=== PATIENT | female | born 1940 | race Hispanic/Latino ===

== ENCOUNTER 2019-11-12 03:39 | Inpatient (IN) | payer OTHER ==
[~2019-11-12] VITALS: Ht 157.5 cm; Wt 81.6 kg
[2019-11-12 05:18] LABS: POTASSIUM 4.5 mmol/L (3.5-5.1)
[2019-11-12 05:19] LABS: ALBUMIN 3.6 g/dL (3.5-5.0); BILIRUBIN,TOTAL 1.7 mg/dL (0.2-1.0); CREATININE 0.7 mg/dL (0.5-1.5); TOTAL PROTEIN, SERUM 7.1 g/dL (6.0-8.3)
[2019-11-12 05:21] LABS: BASOPHILS % (AUTO) 0.2 % (0.0-5.0); HEMATOCRIT 37.5 % (36-48); MEAN CORPUSCULAR HEMOGLOBIN 32.1 pg (27.0-33.0); MEAN CORPUSCULAR HGB CONC 33.6 g/dL (32.0-36.0); MEAN CORPUSCULAR VOLUME 95.4 fL (79-99); MONOCYTES % (AUTO) 0.5 % (3.0-13.0); NEUTROPHILS % (AUTO) 88.8 % (40.0-77.0); PLATELET COUNT (AUTO) 162 K/uL (130-400); RED BLOOD CELL COUNT(AUTO) 3.93 MIL/uL (4.00-5.50); WHITE BLOOD COUNT (AUTO) 4.1 K/uL (4.8-10.8)
[2019-11-12 05:23] LABS: B-TYPE NATRIURETIC PEPTIDE 22 pg/mL (0-100); INR 0.96 (0.85-1.15); PARTIAL THROMBOPLASTIN TIME 21.5 SEC (26.3-35.5); PROTHROMBIN TIME 10.4 SEC (9.6-11.6)
[2019-11-12] MEDS ORDERED: ONDANSETRON HCL 4 MG/2 ML VIAL IV PRN ×2 (05:45→06:15)
[2019-11-12] MEDS ORDERED: NITROGLYCERIN 0.4 MG SL TAB SL PRN ×2 (05:45→06:15)
[2019-11-12] MEDS ORDERED: ACETAMINOPHEN 325 MG TAB PO PRN ×3 (05:45→06:15)
[2019-11-12] MEDS ORDERED: DiphenhydrAMINE HCL 50 MG/ML VIAL IV PRN (06:15)
[2019-11-12] MEDS ORDERED: MAG HYDROX/AL HYDROX/SIMETH ES 30 ML SUSP UDCUP PO PRN (06:15)
[2019-11-12] MEDS ORDERED: DIPHENHYDRAMINE HCL 25 MG CAPSULE PO PRN (06:15)
[2019-11-12] MEDS ORDERED: ZOLPIDEM TARTRATE 5 MG TAB PO PRN (06:15)
[2019-11-12] MEDS ORDERED: GUAIFENESIN-DM 200/20 MG 10 ML PO PRN (06:15)
[2019-11-12] MEDS ORDERED: LACTULOSE 20 GM/30 ML UDCUP PO PRN (06:15)
[2019-11-12] MEDS ORDERED: SODIUM CHLORIDE 0.9% 1000ML 1,000 ML IV SCH (07:00)
[2019-11-12] MEDS ORDERED: IOHEXOL-350 75 ML VIAL IV ONE (07:54)
--- NOTE | 2019-11-12 08:01 | NUR ---
patient still in ER department, awaiting for patient to be transferred to medical floor in order to be able to initiate skilled Physical Therapy evaluation as ordered by Rip Jewell MD Addendum: 11/12/19 at 0803 by HUMPHREY LANDERS, PT PT Amended: Links added.
[2019-11-12 08:14] LABS: THYROID STIMULATING HORMONE 5.91 uIU/mL (0.36-3.74)
[2019-11-12] MEDS: ASPIRIN 325 MG TABLET PO SCH (09:00)
[2019-11-12] MEDS: ENOXAPARIN SODIUM 40 MG/0.4 ML SYRINGE SQ SCH (09:00)
[2019-11-12 17:25] VITALS: BP 133/50
[2019-11-12 20:28] VITALS: BP 130/46
[2019-11-12] MEDS: ATORVASTATIN CALCIUM 40 MG TABLET PO SCH (21:00)
[2019-11-12 23:43] VITALS: BP 124/49
[2019-11-13 03:59] VITALS: BP 120/54
[2019-11-13 07:10] LABS: BASOPHILS % (AUTO) 0.3 % (0.0-5.0); EOSINOPHILS % (AUTO) 0.1 % (0.0-8.0); HEMATOCRIT 33.5 % (36-48); LYMPHOCYTES % (AUTO) 6.4 % (21.0-51.0); MEAN CORPUSCULAR HEMOGLOBIN 32.5 pg (27.0-33.0); MEAN CORPUSCULAR HGB CONC 34.6 g/dL (32.0-36.0); MEAN CORPUSCULAR VOLUME 93.8 fL (79-99); MONOCYTES % (AUTO) 4.4 % (3.0-13.0); NEUTROPHILS % (AUTO) 88.2 % (40.0-77.0); PLATELET COUNT (AUTO) 136 K/uL (130-400); RED BLOOD CELL COUNT(AUTO) 3.57 MIL/uL (4.00-5.50); RED CELL DISTRIBUTION WIDTH 13.1 % (11.0-15.5); WHITE BLOOD COUNT (AUTO) 13.5 K/uL (4.8-10.8)
[2019-11-13 07:31] LABS: ALBUMIN 3.2 g/dL (3.5-5.0); BILIRUBIN,DIRECT 4.3 mg/dL (0.0-0.3); BILIRUBIN,TOTAL 5.1 mg/dL (0.2-1.0); CREATININE 0.8 mg/dL (0.5-1.5); POTASSIUM 3.3 mmol/L (3.5-5.1); TOTAL PROTEIN, SERUM 6.5 g/dL (6.0-8.3)
[2019-11-13 08:14] LABS: HEPATITIS A ANTIBODY IGM Negative (Negative); HEPATITIS B CORE IGM Negative (Negative); HEPATITIS Bs ANTIGEN SCREEN P Negative (Negative)
[2019-11-13 08:48] VITALS: BP 124/47
[2019-11-13 11:23] VITALS: BP 135/83
[2019-11-13 16:57] VITALS: BP 131/59
[2019-11-13 20:22] VITALS: BP 153/60
[2019-11-13] MEDS: ATORVASTATIN CALCIUM 40 MG TABLET PO SCH (21:19)
[2019-11-13 23:21] VITALS: BP 140/68
[2019-11-14 04:22] VITALS: BP 161/68
[2019-11-14 06:56] LABS: ALBUMIN 2.9 g/dL (3.5-5.0); BILIRUBIN,TOTAL 2.8 mg/dL (0.2-1.0); CREATININE 0.5 mg/dL (0.5-1.5); TOTAL PROTEIN, SERUM 6.2 g/dL (6.0-8.3)
[2019-11-14 07:04] LABS: POTASSIUM 2.9 mmol/L (3.5-5.1)
[2019-11-14 07:30] VITALS: BP 157/61
[2019-11-14] MEDS: ENOXAPARIN SODIUM 40 MG/0.4 ML SYRINGE SQ SCH ×2 (09:00→09:10)
[2019-11-14] MEDS: ASPIRIN 325 MG TABLET PO SCH ×2 (09:00→09:09)
[2019-11-14] MEDS: POTASSIUM CHLORIDE 10% ELIXIR 20 MEQ/15 ML UDCUP PO PRN ×3 (09:08→14:26)
--- NOTE | 2019-11-14 10:43 | NUR ---
RECEIVED A CALL FROM RONI DAUGHTER OF OMAYRA ON PATIENT HAVING ALLERGIES TO SHRIMP AND SHELL FISH , ALSO IF FAMILY CAN GET PERMISSION TO HAVE ANOTHER FAMILY MEMBER NAME LOLLY TO BE WITH PATIENT DUE TO PATIENT WITH ALZHEIMER. OTHER DAUGHTER WHICH IS THE POA STATED HER MOM IS NOT ALLERGIC TO SHELLFISH AND SHRIMP TO TAKE OFF ALLERGY LIST THAT HER MOM IS OK AND LOVES TO EAT SHRIMP. ALSO LET HER KNOW PER IMAGERY INTELLIGENCE NO VISITOR ALLOWED . MICHELLE HOROWITZ UNDERSTANDING
[2019-11-14 11:00] VITALS: BP 170/69
[2019-11-14] MEDS ORDERED: MELA10TA2 PO (11:33)
[2019-11-14] MEDS ORDERED: DONE10TA8 PO (11:33)
[2019-11-14] MEDS ORDERED: LEVO50TA11 PO (11:33)
[2019-11-14] MEDS ORDERED: ASPI-1197 PO (11:33)
[2019-11-14] MEDS ORDERED: MEMA10TA55 PO (11:33)
[2019-11-14] MEDS ORDERED: PRAV40TA PO (11:33)
--- NOTE | 2019-11-14 11:34 | NUR ---
CLARIFIED HOME MEDS WITH DAUGHTER MICHELLE VIA PHONE ON WRITTEN MED LIST.
--- NOTE | 2019-11-14 15:59 | NUR ---
SHYANN NOTE/IA PATIENT WITH DIAGNOSIS WITH ALZHEIMERS. NEXT OF KIN CALLED, MICHELLE GRANT. PER DAUGHTER, LIVES WITH DAUGHTER, LOLLY, INDEPENDENT WITH ADLS, HAS USE OF SHOWER CHAIR, NO PROVIDER SERVICES, AND FEELS SAFE FOR PATIENT TO RETURN HOME ONCE DISCHARGED Addendum: 11/14/19 at 1602 by MICHI GARCIA RN CM Amended: Links added.
[2019-11-14 16:00] VITALS: BP 156/72
--- NOTE | 2019-11-14 19:49 | NUR ---
CALLED TO DAUGHTER MICHELLE LET HER KNOW MD HAS NOT WRITTEN OFFICIAL DISCHARGE ORDERS AT THIS TIME . PER DAUGHTER VERBILIZED UNDERSTANDING
[2019-11-14 20:29] VITALS: BP 167/71
[2019-11-14] MEDS: ATORVASTATIN CALCIUM 40 MG TABLET PO SCH (21:56)
[2019-11-14 23:40] VITALS: BP 141/59
[2019-11-15 03:33] VITALS: BP 158/57
[2019-11-15 05:21] LABS: HEMATOCRIT 31.7 % (36-48); MEAN CORPUSCULAR HEMOGLOBIN 32.5 pg (27.0-33.0); MEAN CORPUSCULAR VOLUME 92.7 fL (79-99); PLATELET COUNT (AUTO) 113 K/uL (130-400); RED BLOOD CELL COUNT(AUTO) 3.42 MIL/uL (4.00-5.50); RED CELL DISTRIBUTION WIDTH 12.1 % (11.0-15.5)
[2019-11-15 05:34] LABS: BAND NEUTROPHILS % (MANUAL) 11 % (0-2); BASOPHILS % (MANUAL) 1 % (0-2); LYMPHOCYTES % (MANUAL) 16 % (22-44); MAN.DIFF COMMENT-IMPRESSION MANUAL DIFFERENTIAL; MONOCYTES % (MANUAL) 4 % (2-9); REACTIVE LYMPHOCYTES 1 % (0-0); SEGMENTED NEUTROPHILS % 67 % (40-70)
[2019-11-15 05:35] LABS: PLATELET MORPHOLOGY COMMENT ADEQUATE
[2019-11-15 05:46] LABS: ALBUMIN 2.9 g/dL (3.5-5.0); BILIRUBIN,TOTAL 1.5 mg/dL (0.2-1.0); CREATININE 0.6 mg/dL (0.5-1.5); POTASSIUM 3.3 mmol/L (3.5-5.1); TOTAL PROTEIN, SERUM 6.4 g/dL (6.0-8.3)
[2019-11-15] MEDS: POTASSIUM CHLORIDE 10% ELIXIR 20 MEQ/15 ML UDCUP PO PRN ×3 (05:53→13:16)
[2019-11-15 08:00] VITALS: BP 152/67
[2019-11-15] MEDS: ASPIRIN 325 MG TABLET PO SCH (09:06)
[2019-11-15] MEDS: ENOXAPARIN SODIUM 40 MG/0.4 ML SYRINGE SQ SCH (09:07)
[2019-11-15 12:00] VITALS: BP 161/68
[2019-11-15 16:00] VITALS: BP 153/79
[2019-11-15] MEDS: MEMANTINE HCL 5 MG TABLET PO SCH (20:50)
[2019-11-15] MEDS: ATORVASTATIN CALCIUM 40 MG TABLET PO SCH (20:51)
[2019-11-15] MEDS ORDERED: DONEPEZIL HCL 5 MG TAB PO SCH (21:00)
[2019-11-15] MEDS ORDERED: PRAVASTATIN SODIUM 40 MG PO SCH (21:00)
[2019-11-15 21:10] VITALS: BP 149/67
[2019-11-15 23:58] VITALS: BP 131/64
[2019-11-16 03:49] VITALS: BP 140/65
[2019-11-16] MEDS ORDERED: LEVOTHYROXINE 50 MCG TABLET PO SCH (06:30)
[2019-11-16 08:00] VITALS: BP 161/77
[2019-11-16] MEDS: ENOXAPARIN SODIUM 40 MG/0.4 ML SYRINGE SQ SCH (08:05)
[2019-11-16] MEDS: MEMANTINE HCL 5 MG TABLET PO SCH (08:05)
[2019-11-16] MEDS: ASPIRIN 325 MG TABLET PO SCH (08:05)
[2019-11-16] MEDS ORDERED: ASPIRIN 81MG TAB.CHEW PO SCH (09:00)
[2019-11-16 12:00] VITALS: BP 134/71
--- NOTE | 2019-11-16 15:37 | NUR ---
DISCHARGE INSTRUCTION PROVIDED TO MICHELLE DAUGHTER OF PATIENT
[2019-11-16] MEDS ORDERED: MELATONIN 10 MG PO SCH (21:00)
[2019-12-03] MEDS ORDERED: CYAN50008 PO (14:33)
[2019-12-03] MEDS ORDERED: PRE PO (14:33)
[2019-12-03] MEDS ORDERED: TUMERIC PO (14:33)
[2019-12-03] MEDS ORDERED: PRO BIOTIC PO (14:33)
== END 2019-11-16 17:00 | disposition home or self-care (01) | DRG 149 ==
LOC: EDH 03:39 → EDHIP 05:31 → OBSVTOIN 05:31 → 3DH 17:51
PROVIDERS: ADMIT Internal Medicine; ATTEND Internal Medicine
DX: R42 Dizziness and giddiness (principal); I20.9 Angina pectoris, unspecified; R74.0 Nonspecific elevation of levels of transaminase and lactic acid dehydrogenase [LDH]; F03.90 Unspecified dementia, unspecified severity, without behavioral disturbance, psychotic disturbance, mood disturbance, and anxiety; E05.90 Thyrotoxicosis, unspecified without thyrotoxic crisis or storm; E78.5 Hyperlipidemia, unspecified; Z98.891 History of uterine scar from previous surgery; I10 Essential (primary) hypertension; Z20.828 Contact with and (suspected) exposure to other viral communicable diseases
CPT/HCPCS: 36415; 70551; 71045; 74178; 74183; 76705; 80053; 80061; 80074; 80076; 82550; 82728; 83690; 83880; 84132; 84443; 84484; 85025; 85610; 85730; 87426; 93005; 93306; 93356; 97039; G0378; J1650; Q9967; U0003

== ENCOUNTER 2019-12-04 06:00 | Day surgery (SDC) | payer OTHER ==
[2019-12-04] VITALS (7 sets, daily range): BP systolic 145–180; BP diastolic 70–87
[~2019-12-04] VITALS: Ht 154.9 cm; Wt 79.9 kg
[~2019-12-04 06:00] MED LIST: ASPI-1197 PO; CYAN50008 PO; DONE10TA8 PO; LEVO50TA11 PO; MELA10TA2 PO; MEMA10TA55 PO; PRAV40TA PO; PRE PO; PRO BIOTIC PO; TUMERIC PO
[2019-12-04] MEDS ORDERED: SODIUM CHLORIDE 0.9% 1000ML 1,000 ML IV ONE (06:27)
[2019-12-04] MEDS ORDERED: PROPOFOL 10 MG/ML 20ML VIAL IV ONE (07:33)
== END 2019-12-04 08:35 | disposition home or self-care (01) ==
LOC: ENDO 06:00 → DAH 06:00 → ENDO 08:35
PROVIDERS: ATTEND Internal Medicine Gastroenterology
DX: R10.13 Epigastric pain (principal); K29.50 Unspecified chronic gastritis without bleeding; K83.8 Other specified diseases of biliary tract; R93.2 Abnormal findings on diagnostic imaging of liver and biliary tract; Z20.828 Contact with and (suspected) exposure to other viral communicable diseases; E78.5 Hyperlipidemia, unspecified; K80.20 Calculus of gallbladder without cholecystitis without obstruction; E03.9 Hypothyroidism, unspecified; Z90.710 Acquired absence of both cervix and uterus; Z79.82 Long term (current) use of aspirin; Z79.84 Long term (current) use of oral hypoglycemic drugs; Z79.899 Other long term (current) drug therapy
CPT/HCPCS: 43259; 93005; A4215; A4221; A4222; A4606; A4620; A4663; A7002; C9803; J2704; J7030; U0003